=== PATIENT | male | born 1975 | race Caucasian/White ===

== ENCOUNTER 2019-11-27 20:42 | Emergency (ER) | payer OTHER, SELFPAY ==
--- NOTE | 2019-11-27 20:47 | XRR_ITS ---
PROCEDURE INFORMATION: Exam: XR Right Hand Exam date and time: 11/27/2019 9:11 PM Age: 44 years old Clinical indication: Injury or trauma; Injury history: Punched a wall; Initial encounter; Blunt trauma (contusions or hematomas; Hand; Right; Injury date: 11/27/19 TECHNIQUE: Imaging protocol: XR Right hand. Views: 3 or more views. COMPARISON: CR Hand 3 views, RIGHT* [id number] 12/11/2017 7:50 PM FINDINGS: Bones/joints: Acute fracture distal 3rd metacarpal bone with mild angulation. A subtle underlying nondisplaced fracture of the distal 4th metacarpal bone is not entirely excluded. Soft tissues: Normal. XR/XR hand RT min 3V* [id number] IMPRESSION: 1. Acute fracture distal 3rd metacarpal bone. 2. Subtle nondisplaced fracture distal 4th metacarpal bone is not entirely excluded.
[2019-11-27 20:48] VITALS: BP 146/74; PULSE 74; RESP 14; TEMP 36.9; O2SAT 99; BMI 53.6
--- NOTE | 2019-11-27 22:47 | ED_ITS ---
HPI - Extremity Problem General: Chief complaint: Extremity Injury, Upper Stated complaint: right hand injury Time Seen by Provider: 11/27/19 22:38 Source: patient Mode of arrival: ambulatory Limitations: no limitations History of Present Illness: HPI Narrative: Just prior to arrival the patient got angry and punched a wall with his right hand. He has pain at the second and third metacarpal phalangeal joints. He denies any other injuries or complaints. He denies any distal numbness, tingling or weakness. Associated symptoms: Deny chest pain, fever(s) or rash Review of Systems Const: Denies: fever(s) Eyes: Denies: change in vision ENMT: Denies: throat pain Card: Denies: chest pain, palpitations, syncope, pre-syncope or dyspnea on exertion Resp: Denies: dyspnea, productive cough or non-productive cough GI: Denies: abdominal pain, nausea, vomiting or diarrhea : Denies: flank pain, dysuria, urinary frequency or urinary urgency Musc: Denies: neck pain, back pain or extremity pain Skin/Breast: Denies: rash or pruritus Neuro: Denies: headache(s), numbness in extremities, weakness in extremities or dizziness Eric/Lymph: Denies: easy bruising or easy bleeding All/Imm: Denies: urticaria Physical Exam Const: COMMON NORMALS: no acute distress, patient oriented x3, no limitations, healthy appearing and well nourished GENERAL APPEARANCE: cooperative, well kempt and well developed HENMT: COMMON NORMALS: normocephalic, atraumatic, external ears normal, EAC's normal and Normal external nose present HEAD & SCALP: normal to inspection, normocephalic and atraumatic FACE & SINUS: normal facial exam and face symmetric NOSE: Normal external nose present and Normal nares present EXTERNAL EAR: Yes external ears normal EXTERNAL AUDITORY CANAL: EAC's normal MOUTH: Normal oral and palatal mucosa present, lip normal and tongue normal Eye: COMMON NORMALS: Equal, round and reactive pupils present and conjunctivae normal GENERAL EYE: appearance normal, both eyes and all related structures ALIGNMENT: Yes alignment normal PERIORBITAL: periorbital findings normal EYELID: eyelids normal CONJUNCTIVA: Yes conjunctivae normal SCLERA: sclerae normal PUPIL: Yes Equal, round and reactive pupils present Neck/C-Spine: COMMON NORMALS: full ROM, no lymphadenopathy, supple, no meni ngeal signs and no JVD GENERAL: Yes normal visual inspection and Yes trachea midline Chest: COMMONS NORMALS: normal inspection of the chest and normal palpation of entire chest wall Resp: COMMON NORMALS: normal respiratory effort, No retractions and No use of accessory muscles EFFORT & INSPECTION: Yes able to speak in complete sentences and Yes symmetric chest movement AUSCULTATION: no crackles, no rales, no rhonchi and no wheezes Cardio: COMMON NORMALS: no JVD, regular rate, regular rhythm, S1 normal heart sound present and S2 normal heart sound present RATE: regular rate RHYTHM: regular rhythm HEART SOUNDS: S1 normal heart sound present, S2 normal heart sound present, no click, no gallops, no murmurs, no rubs and abnormal split S2 GI: COMMON NORMALS: Soft to palpation and No hepatosplenomegaly present PALPATION: Yes Soft to palpation, No Tenderness to palpation present (GI), No Guarding due to palpation present (GI), No Rigid due to palpation, Yes No hepatosplenomegaly present, No Hernia present, No Palpable mass present and No Pulsatile mass present : COMMON NORMALS: Yes no CVA tenderness BLADDER/KIDNEY EXAM: Yes no CVA tenderness Back/Pelvis: COMMON NORMALS: no CVA tenderness, thoracic and lumbar spine normal to inspection, no thoracic nor lumbar tenderness and thoraco-lumbar ROM normal Extremity: COMMON NORMALS: full ROM, capillary refill normal, no clubbing, cyanosis or edema and no calf tenderness NARRATIVE EXTREMITY EXAM: Tenderness over the first and second metacarpophalangeal joints of the right hand. Neuro: COMMON NORMALS: patient oriented x3, CN's II-XII intact bilaterally, moves all extremities, no focal motor deficits and no sensory deficits noted MENINGEAL SIGNS: Yes no meningeal signs SPEECH: speech normal Psych: COMMON NORMALS: mental status grossly normal, Normal thought process present, cooperative, normal affect, speech normal and activity/motor behavior normal APPEARANCE: Yes well kempt SPEECH: Yes normal speech THOUGHT PROCESS: Normal thought process present Skin: COMMON NORMALS: no rashes or lesions noted, turgor normal, no jaundice, no petechiae and no mottling GENERAL SKIN EXAM: no rashes or lesions noted and turgor normal Course Vital Signs: Vital signs: Vital Signs Temperature 98.5 F 11/27/19 20:48 Pulse Rate 74 11/27/19 20:48 Respiratory Rate 14 11/27/19 20:48 Blood Pressure 146/74 11/27/19 20:48 Pulse Oximetry 99 11/27/19 20:48 MDM - Extremity (Nontraumatic) MDM Narrative: Medical decision making narrative: Patient was given medicine for pain, splinted and referred to follow-up with Ortho. He has no distal numbness, tingling or weakness. Imaging Data^: Right Hand: My impression: Fracture nondisplaced of the metacarpal head of the third metacarpal. Discharge Plan Discharge Patient Disposition: Home, Self-Care Clinical Impression: Fracture of hand Qualifiers: Encounter type: initial encounter Fracture type: closed Laterality: right Qualified Code(s): S62.91XA - Unspecified fracture of right wrist and hand, initial encounter for closed fracture Condition: Stable Prescriptions: [place] 5-325 mg tablet 1 tab PO Q6H PRN (Reason: pain) 5 Days Qty: 20 RF: 0 ondansetron HCl [Zofran] 4 mg tablet 4 mg PO Q6H PRN (Reason: nausea and vomiting) Qty: 20 RF: 0 Discharge Orders: Discharge Order (Routine); Ordered 11/27/19 Ordered By: Yulia Merida Referrals: Jaylin Hollis MD [Physician] - 1-3 days Roman Saini DO [Primary Care Provider] - Discharge Diet: Advance as tolerated Discharge Activity: Limit activity as instructed Patient Instructions: Hand Fracture (ED) Activity Restrictions/Additional Instructions: Use your splint at all times along with your sling. Take the prescription I have given you for pain. Be certain to follow-up with orthopedics as soon as possible for recheck. Please return to the ER immediately for any of the signs or symptoms listed on your discharge instruction sheets, worsening/changing of your symptoms, you are not getting better as quickly as expected, or for ANY other cause or concerns. 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
[2019-11-27] MEDS: HYDROcodone-acetaminophen 5-325 mg Tablet 2 TAB PO (22:58)
[2019-11-27 23:04] VITALS: BP 146/70; PULSE 84; RESP 18; O2SAT 98
--- NOTE | 2019-11-28 11:12 | DCPLANNER ---
patient registration manager had message to schedule a follow up appointment for patient with ortho. patient registration manager called the ortho clinic, spoke with Pat, gave clinic patients information. patient registration manager was told that patients information would be printed and reviewed. Clinic will call patient with appointment information.
--- NOTE | 2019-11-29 15:06 | DCPLANNER ---
Patient has a follow up appointment scheduled for Wednesday, December 01, [address] at 8:[address] Sifuentes. Clinic will call patient with appointment information.
--- NOTE | 2019-12-01 08:16 | DCPLANNER ---
Patient did attend appointment scheduled for 12.01.19 with ortho.
== END 2019-11-27 23:07 | disposition home or self-care (01) ==
PROVIDERS: Emergency Provider Emergency Medicine; PCP Internal Medicine
DX: S62.302A Unspecified fracture of third metacarpal bone, right hand, initial encounter for closed fracture (principal); W22.09XA Striking against other stationary object, initial encounter
CPT/HCPCS: 12345; 29125; 73130; 99281; 99283

== ENCOUNTER 2019-12-01 10:00 | Outpatient (CLI) | payer OTHER, SELFPAY | END 2019-12-01 10:01 | disposition home or self-care (01) | LOC: SPT 12-04 12:45 | PROVIDERS: PCP Internal Medicine; Referring Provider Orthopaedic Surgery; Visit Provider Orthopaedic Surgery | DX: Z46.89 Encounter for fitting and adjustment of other specified devices (principal); S62.309D Unspecified fracture of unspecified metacarpal bone, subsequent encounter for fracture with routine healing; X58.XXXD Exposure to other specified factors, subsequent encounter | CPT/HCPCS: 97760; L3984 ==

== ENCOUNTER → 2021-05-15 15:52 | Outpatient (BNVA) | payer SELFPAY | PROVIDERS: PCP Internal Medicine; Visit Provider Registered Nurse Neonatal Intensive Care | DX: Z20.822 Contact with and (suspected) exposure to COVID-19 (principal) | CPT/HCPCS: 87635 ==

== ENCOUNTER 2022-10-26 20:00 | Emergency (ER) | payer OTHER, SELFPAY ==
[2022-10-26 20:25] VITALS: BP 147/62; PULSE 69; RESP 16; TEMP 36.7; O2SAT 95; BMI 51.2
--- NOTE | 2022-10-26 20:41 | ED_ITS ---
HPI - Wound/Laceration General: Chief Complaint: Wound/Laceration Stated Complaint: Left Hand Cut Time Seen by Provider: 10/26/22 20:29 History of Present Illness: 47-year-old male patient comes in today with injury to the left distal thumb. Patient was at work today and was cutting up lettuce when he accidentally cut the tip of his finger. Bleeding is controlled. Patient cannot remember last tetanus but does not want one today. Associated symptoms: Denies vomiting Review of Systems General: Reports: 10 or more systems reviewed and unremarkable except in HPI and below Card: Denies: chest pain Resp: Denies: dyspnea GI: Denies: vomiting Musc: Reports: extremity pain Skin/Breast: Reports: new lesions Physical Exam Const: COMMON NORMALS: alert HENMT: COMMON NORMALS: normocephalic HEAD & SCALP: normocephalic Resp: COMMON NORMALS: normal respiratory effort Cardio: COMMON NORMALS: regular rate RATE: regular rate GI: COMMON NORMALS: non-tender Extremity: COMMON NORMALS: full ROM RIGHT UPPER EXTREMITY: Yes hand & digits (1 cm flap laceration distal thumb) Neuro: SENSORIUM/ORIENTATION: Yes alert Skin: TRAUMA: laceration (1 cm left distal thumb) flap Procedures Laceration Laceration 1: Site: hand Side (If applicable): left Size (cm): 1 Description: flap Depth: simple, single layer Skin layer closed with: other (Skin adhesive) Course Vital Signs: Vital signs: Vital Signs Temperature 98.0 F 10/26/22 20:25 Pulse Rate 69 10/26/22 20:25 Respiratory Rate 16 10/26/22 20:25 Blood Pressure 147/62 10/26/22 20:25 Pulse Oximetry 95 10/26/22 20:25 Oxygen Delivery Me thod Room Air 10/26/22 20:25 MDM - Wound/Laceration Medical Decision Making 47-year-old male patient comes in today with injury to the left distal thumb. On exam patient has a 1 cm flap laceration to the distal thumb. No bleeding is noted. Patient appears nontoxic. Differential diagnosis includes laceration, foreign body, fracture. No sign of fracture or foreign body was noted in the wound. Wound was cleaned and covered with skin adhesive and a Steri-Strip and then dressed with a dry dressing. Patient reports recommendations for further treatment and follow-up. Discharge Plan Discharge Patient Disposition: Home Clinical Impression: Finger laceration Qualifiers: Encounter type: initial encounter Finger: thumb Damage to nail status: without damage Foreign body presence: without foreign body Laterality: left Qualified Code(s): S61.012A - Laceration without foreign body of left thumb without damage to nail, initial encounter Condition: Stable Prescriptions: No Action (DME) Fast Form Ulnar Gutter See Rx Instructions .Route .MEDSUPPLY Qty: 1 0RF Rx Instructions: As directed azithromycin 250 mg tablet See Rx Instructions PO .COMPLEX Qty: 6 0RF Rx Instructions: take 500 mg today (day 1), then 250 mg for 4 days (days 2-5) PO Zofran 4 mg tablet 4 mg PO Q6H PRN (Reason: nausea and vomiting) Qty: 20 0RF Discharge Orders: Discharge ED (Routine); Ordered 10/26/22 Ordered By: Jessee Garvey Referrals: Roman Saini DO [Primary Care Provider] - Discharge Diet: Usual diet Discharge Activity: Increase activity as tolerated Patient Instructions: Finger Laceration (ED) Activity Restrictions/Additional Instructions: Keep wound clean and dry. Allow glue to come off on its own. You may use the original dressing and leave it intact as long as the dressing does not become wet or dirty. Follow-up with primary care as needed. Return to ED for new concerns. 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
== END 2022-10-26 21:55 | disposition home or self-care (01) ==
PROVIDERS: Emergency Provider Nurse Practitioner Family; PCP Internal Medicine
DX: S61.012A Laceration without foreign body of left thumb without damage to nail, initial encounter (principal); W26.0XXA Contact with knife, initial encounter; Y93.G1 Activity, food preparation and clean up; Y99.0 Civilian activity done for income or pay
CPT/HCPCS: 12001; 99282

== ENCOUNTER 2023-01-05 11:30 | Emergency (ER) | payer BC, SELFPAY ==
[2023-01-05 11:43] VITALS: BMI 51.4
[2023-01-05 11:44] VITALS: BP 149/101; PULSE 63; RESP 18; O2SAT 97
--- NOTE | 2023-01-05 12:05 | W.ED.BACK ---
HPI - Back Pain/Injury General: Chief Complaint: Back Pain/Injury Stated Complaint: low back pain Time Seen by Provider: 01/05/23 11:43 History of Present Illness: Acute low back pain: Pt was doing some light work at his job and simply moved wrong and threw out my back Location: diffuse low back Quality: ache and sharp Intensity: minimal at rest, can be severe with certain movements Onset: around 0900 this morning at work Radiation: buttock b/l Relieving factors: rest, semi upright position with legs supported Worsening factors: movement, standing, twisting Treatments tried: ibuprofen Associated S/S: Denies perineal numbness, fever/chills, paralysis or weakness, trouble with bowel or bladder including new constipation, ever using IVDA, history of cancer or severe neck pain or stiffness. Associated symptoms: Deny abdominal pain, chills, difficulty walking, dysuria, fever(s), nausea, syncope or vomiting Review of Systems General: Reports: 10 or more systems reviewed and unremarkable except in HPI and below Const: Denies: fever(s), chills or body aches Card: Denies: chest pain, edema or syncope Resp: Denies: dyspnea or productive cough GI: Denies: abdominal pain, nausea, vomiting or diarrhea : Denies: flank pain, dysuria or urinary frequency Musc: Denies: neck pain or extremity swelling Skin/Breast: Denies: rash or erythema Neuro: Denies: headache(s), numbness in extremities, weakness in extremities, lack of coordination or difficulty walking Physical Exam Narrative: EXAM NARRATIVE: Pleasant, NAD. Morbid obesity. Const: COMMON NORMALS: no limitations and alert EXAM LIMITATIONS: no altered mental status HENMT: COMMON NORMALS: normocephalic, atraumatic and external ears normal HEAD & SCALP: normocephalic and atraumatic EXTERNAL EAR: Yes external ears normal MOUTH: no muffled voice Eye: COMMON NORMALS: EOMs intact bilaterally, conjunctivae normal and no scleral icterus CONJUNCTIVA: Yes conjunctivae normal Neck/C-Spine: COMMON NORMALS: no JVD GENERAL: Yes normal visual inspection and Yes trachea midline Resp: COMMON NORMALS: normal respiratory effort, No use of accessory muscles and clear to auscultation bilaterally AUSCULTATION: clear to auscultation bilaterally Cardio: COMMON NORMALS: no JVD, regular rate and regular rhythm RATE: regular rate RHYTHM: regular rhythm GI: COMMON NORMALS: Soft to palpation and non-tender PALPATION: Yes Soft to palpation and No Guarding due to palpation present (GI) Back/Pelvis: COMMON NORMALS: thoracic and lumbar spine normal to inspection and no thoracic nor lumbar tenderness THORACIC SPINE/UPPER BACK: Yes normal to inspection and Yes thoracic ROM normal LUMBAR SPINE/LOWER BACK: Yes ROM limited (pain), Yes pain with ROM, No lumbar spinal tenderness, Yes paraspinal muscle tenderness (mild b/l) Lumbar paraspinal muscle tenderness: bilateral, No paraspinal muscle spasm, No Lumbar scoliosis, Yes straight leg raise positive right, No straight leg raise positive left and Yes bend over test abnormal (bend over causes pain) Extremity: COMMON NORMALS: normal to inspection Neuro: COMMON NORMALS: moves all extremities, no focal motor deficits and no sensory deficits noted SENSORIUM/ORIENTATION: Yes alert SPEECH: speech normal OTHER: NVI both LEs. Psych: COMMON NORMALS: mental status grossly normal, Normal thought process present, cooperative, normal affect and speech normal SPEECH: Yes normal speech THOUGHT PROCESS: Normal thought process present Skin: COMMON NORMALS: no rashes or lesions noted, turgor normal and no jaundice GENERAL SKIN EXAM: no rashes or lesions noted and turgor normal Course Vital Signs: Vital signs: Vital Signs Pulse Rate 63 01/05/23 11:44 Respiratory Rate 18 01/05/23 11:44 Blood Pressure 149/101 01/05/23 11:44 Pulse Oximetry 97 01/05/23 11:44 Oxygen Delivery Me thod Room Air 01/05/23 11:44 MDM - Back Pain/Injury Medical Decision Making Acute low back pain with right sided radiculopathy symptoms. No red flags. Treat with nsaids, muscle relaxer, rest followed by activity as tolerated, prn norco for pain >7/10 for up to three days. F/u instructions and return precautions given. Discharge Plan Discharge Patient Disposition: Home Clinical Impression: Acute right lumbar radiculopathy Condition: Stable Prescriptions: New naproxen 375 mg tablet 375 mg PO BID 7 Days Qty: 14 0RF orphenadrine citrate 100 mg tablet extended release 100 mg PO BID PRN (Reason: spasms) 10 Days Qty: 20 0RF hydrocodone-acetaminophen 5-325 mg tablet 1 tab PO Q8H PRN (Reason: pain (scale score 7-10)) Qty: 9 0RF Held Advil Liqui-Gel 200 mg Capsule 400 mg PO Q6H PRN (Reason: Pain) Hold Instructions: Resume on 01/13/23. Discontinued (DME) Fast Form Jordan Aleyda See Rx Instructions .Route .MEDSUPPLY Qty: 1 0RF Rx Instructions: As directed Discharge Orders: Discharge ED (Routine); Ordered 01/05/23 Ordered By: Ruddy Judd Referrals: Roman Saini DO [Primary Care Provider] - 7-10 days Discharge Diet: Usual diet Discharge Activity: Increase activity as tolerated Patient Instructions: Acute Low Back Pain (ED), Lumbar Radiculopathy (ED), Opioid Safety, Pain Management Activity Restrictions/Additional Instructions: The diagnosis most consistent with your presentation, history, physical exam, and testing today is radicular low back pain. I have enclosed information on your condition Please read this information; it is important to know your medications, the reasons for the medication(s), dose, and frequency. Please call and set up an appointment with your primary physician (if you do not have one, I have provided a list below) for 1-2 week(s) for repeat examination, continued management of your condition, and to discuss your recent trip to the emergency department. Be advised that most cases of back pain take at least 2 weeks to resolve. If you develop a fever higher than 100.4 degrees, inability to walk , become unable to eat or drink, develop perineal numbness (around your inner thighs or anus), fever, paralysis or weakness, trouble with bowel or bladder including new constipation, severe neck pain or stiffness, or your condition otherwise declines then please return to the emergency department promptly as these may be signs of a worsening medical condition. Please take your medications only as prescribed and NEVER drink alcohol, drive, operate heavy machinery, or take Tylenol (acetaminophen) when taking your pain medications. Also, please be aware the Emergency Department tend not to dispense narcotics on repeated visits. A physician with regular followup is the appropriate source for ongoing pain management. Stand Alone Forms: Work/School Release Coding Level of Care Code ED Preschool Paraprofessional for Neyda Tafoya
[2023-01-05 12:14] VITALS: BP 161/99; PULSE 64; O2SAT 97
== END 2023-01-05 12:14 | disposition home or self-care (01) ==
PROVIDERS: Emergency Provider Emergency Medicine; PCP Internal Medicine
DX: M54.16 Radiculopathy, lumbar region (principal)
CPT/HCPCS: 99284

== ENCOUNTER 2024-06-02 17:49 | Emergency (ER) | payer OTHER, SELFPAY ==
[2024-06-02 18:11] VITALS: BP 143/92; PULSE 78; RESP 16; TEMP 37.2; O2SAT 97; BMI 51.5
--- NOTE | 2024-06-02 19:20 | W.ED.EYEPROB ---
HPI - Eye Problem General: Chief complaint: Eye Problems Stated complaint: vision blocked in rt eye Time Seen by Provider: 06/02/24 19:20 History of Present Illness: Patient presents with sudden onset of vision changes in the right eye that began on Wednesday. Patient reports waking up with a dark spot in the right eye that has progressively worsened over the past few days. Currently, the affected area covers approximately 75% of the vision in the right eye, appearing as a brownish-red spot with greenish-red coloring on the outer edges. The visual disturbance moves with eye movement and is now constant regardless of position, though initially was worse when lying down. Patient reports mild pain (1/10) around the eye and top of head, describing it as a sensitivity similar to after rubbing the eye too much. Patient has relevant surgical history of bilateral cataract surgery with lens replacement approximately 8 years ago, with no complications until now. Denies any recent trauma to the eye. Left eye vision remains normal. Patient denies any chronic medical conditions and takes no prescription medications. Last medical check-up was 2 years ago, and patient admits to not having regular follow-up with an eye care provider since the cataract surgery. Related Data Home Medications Medication Instructions Recorded Confirmed ibuprofen 200 mg capsule (Advil 400 mg PO Q6H PRN Pain 01/05/23 09/21/23 Liqui-Gel) Allergies Allergy/AdvReac Type Severity Reaction Status Date / Time No Known Allergies Allergy Verified 06/02/24 18:17 Review of Systems General: Reports: 10 or more systems reviewed and unremarkable except in HPI and below Eyes: Reports: change in vision, blurry vision and blind spots; Denies: eye discomfort, eye discharge, eye redness, yellow eyes, dry eyes, increased production of tears or floaters Physical Exam Const: GENERAL APPEARANCE: cooperative, comfortable and well developed; not in distress HENMT: COMMON NORMALS: normocephalic and external ears normal HEAD & SCALP: normocephalic EXTERNAL EAR: Yes external ears normal Eye: GENERAL EYE: appearance normal, both eyes and all related structures, normal light reflex, no increased light reflex, no enophthalmos, no exophthalmos and no proptosis DIRECT OPHTHALMOSCOPY: Yes normal light reflex and No increased light reflex Chest: CHEST: Yes Symmetrical chest wall rise Cardio: COMMON NORMALS: regular rate and regular rhythm RATE: regular rate RHYTHM: regular rhythm GI: INSPECTION: Yes normal to inspection Course ED course: 48-year-old then with several days of partial vision loss. Workup here from the medical standpoint was unremarkable specifically he had a negative CT head, orbits and his sedimentation rate and labs were normal. I think this likely represents issue with his lens. This does not sound like a retinal detachment or other significant emergent condition. He does have a eye doctor and he is going to get a hold of them and I have encouraged him to do this. Return precautions follow-up instructions given. Vital Signs: Vital signs: Vital Signs Temperature 99.0 F 06/02/24 18:11 Pulse Rate 78 06/02/24 18:11 Respiratory Rate 16 06/02/24 18:11 Blood Pressure 143/92 06/02/24 18:11 Pulse Oximetry 97 06/02/24 18:11 Oxygen Delivery Me thod Room Air 06/02/24 18:11 MDM - Eye Problem Medical Decision Making Discussed differential diagnosis the patient's presentation. He includes stroke and vasculitis or giant cell arteritis as well as displacement of the lens or complication from prior cataract surgery. Recommend CT of his head and orbits as well as routine labs including sedimentation rate. Lab Data 06/02/24 19:52 06/02/24 19:[address] 06/02/24 19:31 IMPRESSION: No acute intracranial abnormality. Orbit CT 06/02/24 19:31 IMPRESSION: No focal orbital abnormalities. Laboratory Results WBC 8.33 10^3/uL (3.29-11.43) 06/02/24 19:52 RBC 4.97 10^6/uL (3.85-5.65) 06/02/24 19:52 Hgb 15.00 g/dL (11.27-16.99) 06/02/24 19:52 Hct 45.1 % (37-53) 06/02/24 19:52 MCV 90.7 fl (82-101) 06/02/24 19:52 MCH 30.2 pg (27-33) 06/02/24 19:52 MCHC 33.3 g/dL (30-55) 06/02/24 19:52 RDW 12.3 % (12.1-15.1) 06/02/24 19:52 Plt Count 198 10^3/cmm (157-399) 06/02/24 19:52 MPV 10.2 fL (7.4-10.4) 06/02/24 19:52 Neut % (Auto) 65.3 % 06/02/24 19:52 Lymph % (Auto) 21.8 % 06/02/24 19:52 [place] % (Auto) 7.4 % 06/02/24 19:52 Eos % (Auto) 4.7 % 06/02/24 19:52 Baso % (Auto) 0.6 % 06/02/24 19:52 Neut # (Auto) 5.43 10^3/uL (1.8-7.7) 06/02/24 19:52 Lymph # (Auto) 1.8 10^3/uL (0.8-4.8) 06/02/24 19:52 [place] # (Auto) 0.6 10^3/uL (0.2-0.9) 06/02/24 19:52 Eos # (Auto) 0.4 10^3/uL (0.0-0.8) 06/02/24 19:52 Baso # (Auto) 0.1 10^3/uL (0.0-0.1) 06/02/24 19:52 Nucleated RBC % (auto) 0 % 06/02/24 19:52 Nucleated RBCs # 0.0 /100WBC 06/02/24 19:52 ESR 5 mm/hr (0-10) 06/02/24 19:52 Sodium 139 mmol/L (136-145) 06/02/24 19:52 Potassium 3.7 mmol/L (3.5-5.1) 06/02/24 19:52 Chloride 104 mmol/L (98-107) 06/02/24 19:52 Carbon Dioxide 27 mmol/L (22-29) 06/02/24 19:52 Anion Gap 11.7 (5-19) 06/02/24 19:52 BUN 14 mg/dL (6-20) 06/02/24 19:52 Creatinine 0.8 mg/dL (0.7-1.2) 06/02/24 19:52 GFR Calculation 102.7 mL/min (90-130) 06/02/24 19:52 Glucose 98 mg/dL (65-115) 06/02/24 19:52 Calculated Osmolality 288 mOsm/kg (285-295) 06/02/24 19:52 Calcium 9.2 mg/dL (8.5-10.5) 06/02/24 19:52 All radiology interpretation(s) finalized by discharge Discharge Plan Discharge Patient Disposition: Home Clinical Impression: Moderate vision loss of one eye Condition: Stable Prescriptions: No Action Advil Liqui-Gel 200 mg Capsule 400 mg PO Q6H PRN (Reason: Pain) Hold Instructions: Resume on 01/13/23. 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
--- NOTE | 2024-06-02 19:31 | CTR_ITS ---
PROCEDURE INFORMATION: Exam: CT Head Without Contrast Exam date and time: 06/02/2024 8:39 PM Age: 48 years old Clinical indication: Visual disturbance; Patient HX: C/O dark spots in vision to RT eye with ocular pain x 3 days. ; Additional info: Visual field cut TECHNIQUE: Imaging protocol: Computed tomography of the head without contrast. Radiation optimization: All CT scans at this facility use at least one of these dose optimization techniques: automated exposure control; mA and/or kV adjustment per patient size (includes targeted exams where dose is matched to clinical indication); or iterative reconstruction. COMPARISON: No relevant prior studies available. RADIATION DOSE METRICS: Total DLP (mGy-cm): 1144.6 FINDINGS: Brain: There is patchy hypoattenuation in the deep and subcortical white matter, likely representing chronic small vessel ischemic change. No hemorrhage. Cerebral ventricles: No ventriculomegaly. Paranasal sinuses: Visualized sinuses are unremarkable. No fluid levels. Mastoid air cells: Visualized mastoid air cells are well aerated. Bones: Unremarkable. No acute fracture. Soft tissues: Unremarkable. CT/CT head wo con* [id number] IMPRESSION: No acute intracranial abnormality.
--- NOTE | 2024-06-02 19:31 | CTR_ITS ---
PROCEDURE INFORMATION: Exam: CT Orbits With Contrast Exam date and time: 06/02/2024 8:42 PM Age: 48 years old Clinical indication: Visual changes or disturbances; Other: seeing dark spots ; Right; Patient HX: C/O dark spots in vision to RT eye with ocular pain x 3 days. ; Additional info: Visual loss TECHNIQUE: Imaging protocol: Computed tomography of the orbits with contrast. Radiation optimization: All CT scans at this facility use at least one of these dose optimization techniques: automated exposure control; mA and/or kV adjustment per patient size (includes targeted exams where dose is matched to clinical indication); or iterative reconstruction. Contrast material: OMNI 350; Contrast volume: 100 ml; Contrast route: INTRAVENOUS (IV); COMPARISON: CT head wo con* [id number] 06/02/2024 8:39 PM RADIATION DOSE METRICS: Total DLP (mGy-cm): 306.38 FINDINGS: Paranasal sinuses: Normal. No air-fluid levels. Orbital cavities: Orbits are normal. Globes are unremarkable. Bones/joints: No acute fracture. Soft tissues: No significant facial soft tissue swelling. CT/CT orbit BI w con [id number] IMPRESSION: No focal orbital abnormalities.
[2024-06-02 20:00] LABS: Basophils # 0.1 10^3/uL (0.0-0.1); Basophils % 0.6 %; Eosinophils # 0.4 10^3/uL (0.0-0.8); Eosinophils % 4.7 %; Hematocrit 45.1 % (37-53); Lymphocytes # 1.8 10^3/uL (0.8-4.8); Lymphocytes % 21.8 %; Mean Corpuscular HGB Conc 33.3 g/dL (30-55); Mean Corpuscular Hemoglobin 30.2 pg (27-33); Mean Corpuscular Volume 90.7 fl (82-101); Mean Platelet Volume 10.2 fL (7.4-10.4); Monocytes # 0.6 10^3/uL (0.2-0.9); Monocytes % 7.4 %; Neutrophils # 5.43 10^3/uL (1.8-7.7); Neutrophils % 65.3 %; Nucleated Red Blood Cells % 0 %; Platelet Count 198 10^3/cmm (157-399); Red Blood Count 4.97 10^6/uL (3.85-5.65); Red Cell Distribution Width 12.3 % (12.1-15.1); White Blood Count 8.33 10^3/uL (3.29-11.43)
[2024-06-02 20:09] LABS: Erythrocyte Sedimentation Rate 5 mm/hr (0-10)
[2024-06-02 20:22] LABS: Anion Gap 11.7 (5-19); Blood Urea Nitrogen 14 mg/dL (6-20); Calcium 9.2 mg/dL (8.5-10.5); Carbon Dioxide 27 mmol/L (22-29); Chloride 104 mmol/L (98-107); Creatinine Clr Calc Pharmacy 182.4834; Glomerular Filtration Rate 102.7 mL/min (90-130); Glucose 98 mg/dL (65-115); Osmolality Calculated 288 mOsm/kg (285-295); Potassium 3.7 mmol/L (3.5-5.1); Sodium 139 mmol/L (136-145)
[2024-06-02] MEDS: iohexol 350 mg/mL 500 mL Btl (per mL) IV (20:43)
[2024-06-02 21:48] VITALS: BP 157/106; PULSE 75; O2SAT 95
== END 2024-06-02 22:00 | disposition home or self-care (01) ==
PROVIDERS: Emergency Provider Family Medicine; PCP Internal Medicine
DX: H54.61 Unqualified visual loss, right eye, normal vision left eye (principal)
CPT/HCPCS: 36415; 70450; 70481; 80048; 85025; 85651; 99285